=== PATIENT | female | born 1985 | race Caucasian/White ===

== ENCOUNTER 2017-11-11 07:56 | Emergency (ER) | payer OTHER ==
[~2017-11-11] VITALS: Ht 160 cm; Wt 56.5 kg
[2017-11-11] MEDS ORDERED: LORazepam 1MG TABLET PO ONE (08:30)
[2017-11-11 08:36] LABS: BASOPHILS # (AUTO) 0.04 x10^3/uL (0-0.1); BASOPHILS % (AUTO) 1 % (0-1); EOSINOPHILS # (AUTO) 0.49 x10^3/uL (0-0.4); EOSINOPHILS % (AUTO) 8 % (1-7); LYMPHOCYTES # (AUTO) 1.88 x10^3/uL (1-3.4); LYMPHOCYTES % (AUTO) 32 % (22-44); MD NO; MEAN CORPUSCULAR HEMOGLOBIN 31.3 pg (27.0-34.8); MEAN CORPUSCULAR VOLUME 92.3 fL (80-100); MEAN PLATELET VOLUME 7.1 fL (7.4-10.4); MONOCYTES # (AUTO) 0.38 x10^3/uL (0.2-0.8); MONOCYTES % (AUTO) 7 % (2-9); NEUTROPHILS # (AUTO) 3.12 x10^3/uL (1.8-6.8); NEUTROPHILS % (AUTO) 53 % (42-75); PLATELET COUNT 281 x10^3/uL (130-400); RED BLOOD COUNT 4.26 x10^6/uL (3.82-5.3); RED CELL DISTRIBUTION WIDTH 12.6 % (9.6-15.2)
[2017-11-11] MEDS ORDERED: LORazepam 1MG TABLET ONE (08:43)
[2017-11-11 08:48] LABS: ALBUMIN 4.1 g/dL (3.4-5.0); ANION GAP 9 mmol/L (5-15); CALCIUM 8.6 mg/dL (8.5-10.1); CHLORIDE 105 mmol/L (98-107); CREATININE 1.08 mg/dL (0.55-1.02)
[2017-11-11 08:52] LABS: T4 (THYROXINE) 9.8 mcg/dL (4.8-13.9); TROPONIN I < 0.015 ng/mL (0.000-0.045)
[2017-11-11] MEDS ORDERED: POTASSIUM CHLORIDE 20 MEQ TAB.ER.PRT PO ONE (09:30)
[2017-11-11] MEDS ORDERED: POTASSIUM CHLORIDE 40 MEQ in SODIUM CHLORIDE 0.9% 500 ML IV ONE (09:30)
[2017-11-11] MEDS ORDERED: POTASSIUM CHLORIDE 20 MEQ TAB.ER.PRT ONE (09:47)
[2017-11-11 09:49] VITALS: BP 126/77
== END 2017-11-11 11:47 | disposition home or self-care (01) ==
LOC: ED 08:26
DX: E87.6 Hypokalemia (principal)
CPT/HCPCS: 36415; 71045; 80048; 82040; 84436; 84443; 84484; 85025; 93005; 99285; J3480; J7040

== ENCOUNTER 2020-08-15 09:11 | Emergency (ER) | payer BC ==
[~2020-08-15] VITALS: Ht 162.6 cm; Wt 61.1 kg
[2020-08-15 09:14] VITALS: BP 117/90
--- NOTE | 2020-08-15 10:25 | NUR ---
tax associate attorney: attempted to call pt from lobby, no answer in lobby
--- NOTE | 2020-08-15 10:31 | NUR ---
ciaio lumite injector: attempted to call pt from lobby, no answer
--- NOTE | 2020-08-15 10:40 | NUR ---
motor grader operator: no answer in lobby
== END 2020-08-15 10:55 | disposition left against medical advice (07) ==
LOC: ED 10:35
DX: R11.2 Nausea with vomiting, unspecified (principal); R19.7 Diarrhea, unspecified; Z53.21 Procedure and treatment not carried out due to patient leaving prior to being seen by health care provider

== ENCOUNTER 2020-08-16 06:51 | Emergency (ER) | payer BC ==
[~2020-08-16] VITALS: Ht 160 cm; Wt 60.7 kg
--- NOTE | 2020-08-16 07:03 | NUR ---
ASSUMED CARE OF PT. PLACED IN GOWN. SHE IS HERE W/ C/O OF "FLU LIKE SX" SHE HAS N/V/D ABD PAIN/CRAMPING LOWER QUAD ABD TENDERNESS AND DIARHEA STARTING FRIDAY NIGHT. PT REPORTS SEEING BLOOD IN STOOL WHICH SHE IS CONCERNED ABOUT. DID STATE SHE HAD NOSE SX AND WAS TOLD BY HER SX THAT COULD BE WHY SHE IS SEEING BLOOD IN STOOL. PLACED ON MONITOR, VSS, NADN. CALL LIGHT W/ INREACH.
--- NOTE | 2020-08-16 07:15 | NUR ---
pt denies any home medication.
[2020-08-16] MEDS ORDERED: SODIUM CHLORIDE 0.9% 1,000ML IVBOLUS ONE (07:30)
[2020-08-16] MEDS ORDERED: FAMOTIDINE 20 MG/2 ML IVPush ONE (07:30)
[2020-08-16] MEDS ORDERED: ONDANSETRON 2MG/ML, 2ML IVPush ONE (07:30)
[2020-08-16] MEDS ORDERED: FAMOTIDINE 20 MG/2 ML ONE (07:32)
[2020-08-16] MEDS ORDERED: ONDANSETRON 2MG/ML, 2ML ONE (07:32)
--- NOTE | 2020-08-16 07:39 | NUR ---
PIV STARTED, PT MEDICATED PER MAY. SHE HAS BEEN INFORMED SHE IS NPO FOR THIS TIME AND THAT WE NEED URINE SAMPLE. Addendum: 08/16/20 at 0739 by ALBERTO MAEGAN PERALES, CALL LIGHT W/IN JAME.
[2020-08-16 07:53] LABS: BASOPHILS % (AUTO) 0 % (0-1); EOSINOPHILS % (AUTO) 2 % (1-7); LYMPHOCYTES % (AUTO) 10 % (22-44); MEAN CORPUSCULAR HEMOGLOBIN 32.3 pg (27.0-34.8); MEAN CORPUSCULAR HGB CONC 34.4 g/dL (32.4-35.8); MEAN PLATELET VOLUME 7.4 fL (7.4-10.4); MONOCYTES % (AUTO) 8 % (2-9); NEUTROPHILS % (AUTO) 80 % (42-75); PLATELET COUNT 262 x10^3/uL (130-400); RED BLOOD COUNT 4.52 x10^6/uL (3.82-5.3); RED CELL DISTRIBUTION WIDTH 14.1 % (9.6-15.2)
[2020-08-16 07:55] LABS: MD NO
[2020-08-16 08:04] LABS: ALBUMIN 3.6 g/dL (3.4-5.0); ANION GAP 3 mmol/L (5-15); CALCIUM 9.4 mg/dL (8.5-10.1); CHLORIDE 102 mmol/L (98-107)
--- NOTE | 2020-08-16 08:04 | NUR ---
PT RESTING ON GURNEY, ON PHONE. PT PROVIDED BLANKET PER REQUEST. MAEGAN, DIAZ. CALL LIGHT W/IN REACH.
[2020-08-16 08:11] LABS: CREATININE 0.85 mg/dL (0.55-1.02)
[2020-08-16 08:12] LABS: ALKALINE PHOSPHATASE 67 U/L (45-117); BILIRUBIN,TOTAL 0.8 mg/dL (0.2-1.0); TOTAL PROTEIN 7.3 g/dL (6.4-8.2)
--- NOTE | 2020-08-16 08:12 | NUR ---
PT UP TO RESTROOM AND BACK W/O INCIDENT, PROVIDED URINE SAMPLE. CLARICEN, CALL LIGHT W.IN REACH
[2020-08-16 08:16] LABS: ALANINE AMINOTRANSFERASE 24 U/L (12-78)
[2020-08-16 08:35] LABS: MICROSCOPIC NOT IND
--- NOTE | 2020-08-16 09:13 | NUR ---
RN PRESENT W/ MD FOR ANOSCOPE. DIAZ ISSA. CALL LIGHT W/IN REACH.
[2020-08-16 09:53] VITALS: BP 90/46
--- NOTE | 2020-08-16 09:58 | NUR ---
Patient given discharge instructions and they have confirmed that they understand the instructions. Patient ambulatory with steady gait.
== END 2020-08-16 10:09 | disposition home or self-care (01) ==
LOC: ED 08:13
DX: K64.8 Other hemorrhoids (principal); K92.1 Melena; R00.0 Tachycardia, unspecified
CPT/HCPCS: 36415; 80053; 81003; 83690; 84703; 85025; 96361; 96374; 96375; 99285; J2405; J7030